=== PATIENT | female | born 1970 | race African-American/Black ===

== ENCOUNTER 2017-03-02 10:30 | Emergency (ER) | payer OTHER ==
--- NOTE | ~2017-03-02 | EKG ---
PATIENT: JOSE PÉREZ UNIT #: [id number] Ventricular Rate: 76 BPM Atrial Rate: 76 BPM P-R Interval: 132 ms QRS Duration: 74 ms Q-T Interval: 356 ms QTC Calculation(Bezet): 400 ms P [place]: 83 degrees Calculated R [place]: 72 degrees Calculated T [place]: 32 degrees Diagnosis Line: Normal sinus rhythm Diagnosis Line: T wave abnormality, consider anterior ischemia Diagnosis Line: Abnormal ECG Diagnosis Line: When compared with ECG of 07-JAN-2014 20:05, Diagnosis Line: No significant change was found Diagnosis Line: Confirmed by BERNARDINO VELAZQUEZ MD ([id number]) on 03/02/2017 Diagnosis Line: 10:43:35 PM INTERPRETING MD: CAROLINE FINNEY
[2017-03-02 10:27] LABS: POC - CKMB <1.0 ng/mL (0.0-7.9); POC - TROPONIN <0.05 ng/mL (<=0.05)
[2017-03-02 10:30] LABS: BASOPHIL# 0.1 X10e3 (0-0.3); BASOPHIL% 0.9 % (0-2.5); EOSINOPHIL# 0.3 X10e3 (0-0.7); EOSINOPHIL% 3.7 % (0.0-7.0); HEMATOCRIT 41.6 % (35.0-45.0); HEMOGLOBIN 13.6 gm/dL (12.0-16.0); LYMPHOCYTE# 4.2 X10e3 (1.0-3.5); MEAN CELL VOLUME 93.8 FL (83-96); MEAN CORPUSCULAR HEMOGLOBIN 30.7 PG (28-34); MEAN CORPUSCULAR HGB CONC 32.7 g/dL (30-36); MEAN PLATELET VOLUME 8.8 FL (6.5-11.5); MONOCYTE# 0.5 X10e3 (0-1.0); MONOCYTE% 5.7 % (3.0-12.0); NEUTROPHIL# 2.9 X10e3 (1.5-7.1); NEUTROPHIL% 36.7 % (40-75); PLATELET COUNT 261 X10e3 (140-420); RED BLOOD COUNT 4.44 X10e (3.90-5.30); RED CELL DISTRIBUTION WIDTH 13.6 % (11.0-15.5)
[~2017-03-02 10:30] MED LIST: ACETAMINOPHEN PO; ALBUTEROL17 GM INH; ANTIVERT PO; ASPIRIN81 M1 PO; BACTRIM DS TABL1 TA1 PO; FLEXERIL PO; FLEXERIL10 MG PO; IBUPROFEN800 MG; IBUPROFEN800 MG PO; LORTAB 10-5001 EACH; MEDROL PO; NAPROSYN500 MG PO; NEURONTIN300 MG PO; NO MEDICATIONS; PHENERGAN; PHENERGAN25 M1 PO; PROTONIX PO; TYLENOL #3 PO; VICODIN 5/1 TAB 5/50 PO; ZITHROMAX PO
[2017-03-02 10:31] LABS: DIFF IND YES
[2017-03-02 10:52] LABS: ALBUMIN SERUM 3.9 g/dL (3.5-5.0); BILIRUBIN, DIRECT 0.1 mg/dL (0.0-0.2); BILIRUBIN,INDIRECT 0.8 mg/dL (0.0-0.9); BILIRUBIN,TOTAL 0.9 mg/dL (0.2-2.0); CALCIUM SERUM 8.9 mg/dL (8.4-10.2); CREATININE SERUM 0.5 mg/dL (0.6-1.4); GLOM FILT RATE Estimated 134.5 mL/min (>60); POTASSIUM 3.8 mmol/L (3.5-5.1); PROTEIN TOTAL SERUM 7.1 g/dL (6.0-8.3)
[2017-03-02 11:09] LABS: PLATELET ESTIMATE NORMAL (NORMAL)
[2017-03-02 11:10] LABS: ANISOCYTOSIS SL; RBC NORMAL YES
== END 2017-03-02 10:57 | disposition left against medical advice (07) ==
LOC: CED 10:30
DX: Z53.21 Procedure and treatment not carried out due to patient leaving prior to being seen by health care provider (principal)
CPT/HCPCS: 80048; 80076; 82553; 84484; 85025; 93005

== ENCOUNTER 2017-04-30 07:45 | Emergency (ER) | payer OTHER | END 2017-04-30 09:01 | disposition home or self-care (01) | LOC: CED 07:45 | DX: S05.01XA Injury of conjunctiva and corneal abrasion without foreign body, right eye, initial encounter (principal); H10.31 Unspecified acute conjunctivitis, right eye; Z23 Encounter for immunization; X58.XXXA Exposure to other specified factors, initial encounter; Y92.9 Unspecified place or not applicable | CPT/HCPCS: 90471; 90715; 99283 ==